=== PATIENT | male | born 1955 | race Caucasian/White ===

== ENCOUNTER 2022-08-24 10:40 | Emergency (ER) | payer OTHER ==
[2022-08-24 10:52] VITALS: BP 139/73
[2022-08-24] MEDS ORDERED: COZAAR25 M1 (11:36)
[2022-08-24] MEDS ORDERED: GLUCOPHAGE (11:36)
[2022-08-24] MEDS ORDERED: ATORVASTATIN CA10 MG (11:36)
[2022-08-24] MEDS ORDERED: ALDACTONE25 M1 (11:36)
[2022-08-24] MEDS ORDERED: OZEMPIC0.25 MG/0. (11:37)
[2022-08-24] MEDS ORDERED: FAMOTIDINE 1010 MG (11:37)
[2022-08-24] MEDS ORDERED: SENNA8.6 M1 (11:37)
[2022-08-24] MEDS ORDERED: NAPROXEN250 M2 PO (11:37)
== END 2022-08-24 11:38 | disposition home or self-care (01) ==
LOC: ED 10:40
DX: M25.551 Pain in right hip (principal); Z28.310 Unvaccinated for COVID-19; W22.8XXA Striking against or struck by other objects, initial encounter; X50.1XXA Overexertion from prolonged static or awkward postures, initial encounter